=== PATIENT | female | born 1970 | race Caucasian/White ===

== ENCOUNTER 2022-08-19 09:33 | Emergency (ER) | payer OTHER ==
[~2022-08-19] VITALS: Ht 154 cm; Wt 109.0 kg
[2022-08-19 10:24] LABS: BASOPHILS # (AUTO) 0.1 10^3/uL (0.0-0.1); BASOPHILS % (AUTO) 0 % (0-10); EOSINOPHILS % (AUTO) 0 % (0-10); HEMATOCRIT 42 % (35-52); HEMOGLOBIN 13.9 g/dL (11.5-16.0); LYMPHOCYTES # (AUTO) 1.6 10^3/uL (1.0-4.0); LYMPHOCYTES % (AUTO) 7 % (12-44); MEAN CORPUSCULAR HEMOGLOBIN 30 pg (25-34); MEAN CORPUSCULAR HGB CONC 33 g/dL (32-36); MEAN CORPUSCULAR VOLUME 89 fL (80-99); MEAN PLATELET VOLUME 10.4 fL (9.0-12.2); MONOCYTES # (AUTO) 1.2 10^3/uL (0.0-1.0); MONOCYTES % (AUTO) 5 % (0-12); NEUTROPHILS # (AUTO) 19.7 10^3/uL (1.8-7.8); NEUTROPHILS % (AUTO) 87 % (42-75); PLATELET COUNT 258 10^3/uL (130-400); WHITE BLOOD COUNT 22.7 10^3/uL (4.3-11.0)
[2022-08-19 10:25] LABS: CLARITY,URINE CLOUDY; COLOR,URINE YELLOW; GLUCOSE, URINE (UA) NEGATIVE (NEGATIVE); KETONES,URINE 1+ (NEGATIVE); LEUKOCYTE ESTERASE ,URINE 3+ (NEGATIVE); NITRITE,URINE POSITIVE (NEGATIVE); PH,URINE 5.5 (5-9); PROTEIN,URINE 1+ (NEGATIVE)
[2022-08-19 10:35] LABS: BILIRUBIN,URINE 1+ (NEGATIVE)
[2022-08-19 10:36] LABS: BACTERIA,URINE MODERATE /HPF; WBC,URINE TNTC /HPF
--- NOTE | 2022-08-19 10:36 | ED GU-Female ---
General Chief Complaint: - Reproductive Stated Complaint: UTI SYMPTOMS/FLANK PAIN/FEVER/CHILLS Nursing Triage Note: PT TO RM 5 BY WC WITH C/O L FLANK PAIN THAT STARTED SATURDAY, URINARY BURNING AND DECREASED URINE OUTPUT. PT STATES SATURDAY SHE ALSO STARTED RUNNING A FEVER AFTER WORK Source: patient Exam Limitations: no limitations (SAHARA BOONE) History of Present Illness Date Seen by Provider: Aug 19, 2022 Time Seen by Provider: 10:29 Initial Comments Patient is a 51 year old F with history of diabetes and neuropathy who presents to the ER with CC of left flank pain onset 4 days ago. Reports she also began running fevers since then with the highest being 104. States that she has "violent chills" and she has not been eating well due to nausea. Denies any vomiting. Patient rates her left flank pain as 5 out of 10 at present and describes it as sharp and intermittent. She reports feeling dehydrated and that her urine is dark in color. States that she has a dry cough at times. Denies any shortness of breath or chest pain at this time. 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 She has not been swabbed for the flu. She has received 2 doses of the COVID vaccine and her flu vaccine. Timing/Duration: intermittent Severity/Quality: mild Location: left flank Radiation: none Associated Symptoms: dysuria, fever/chills, nausea/vomiting (SAHARA BOONE) Allergies and Home Medications Allergies Coded Allergies: cefaclor (Verified Allergy, Unknown, 08/19/22) levofloxacin (Verified Allergy, Unknown, 08/19/22) penicillin G (Verified Allergy, Unknown, 08/19/22) sulfamethoxazole (Verified Allergy, Unknown, 08/19/22) trimethoprim (Verified Allergy, Unknown, 08/19/22) Patient Home Medication List Home Medication List Reviewed: Yes (SAHARA BOONE) Review of Systems Review of Systems Constitutional: chills, fever EENTM: no symptoms reported Respiratory: cough (dry); No short of breath Cardiovascular: No chest pain, No palpitations Gastrointestinal: No abdominal pain; nausea; No vomiting Genitourinary: dysuria, flank pain (left more than right); denies hematuria Musculoskeletal: no symptoms reported (SAHARA BOONE) Past Wveioeu-Arzfpb-Bfifcn Hx Patient Social History Tobacco Use?: No Smoking Status: Former Smoker Substance use?: No Alcohol Use?: Yes Alcohol Frequency: Rarely (MIGUELINASTEFANISAHARA) Immunizations Up To Date Influenza Vaccine Up-to-Date: Yes; Up-to-Date First/Initial COVID19 Vaccinat: 2020 Second COVID19 Vaccination Amaury: 2020 (SAAHRA BOONE) Past Medical History Surgery/Hospitalization HX: DM, HTN, NERVE PROBLEMS (MELYSAHARA) Physical Exam Vital Signs Vital Signs - First Documented 08/19/22 09:53 Temp 36.2 Pulse 100 Resp 18 B/P (MAP) 118/71 (87) (RANDALL KOEHLER MD) Vital Signs Capillary Refill : (SAHARA BOONE) Height, Weight, BMI Height: '" Weight: lbs. oz. kg; 45.00 BMI Method: General Appearance: WD/WN, obese Neck: non-tender, supple Cardiovascular: regular rate, rhythm, no murmur Respiratory: chest non-tender, lungs clear, normal breath sounds, no respiratory distress, no accessory muscle use Gastrointestinal: non tender, soft Back: normal inspection, CVA tenderness (L) Extremities: non-tender, no calf tenderness, other (trace ankle edema) Neurologic/Psychiatric: alert, normal mood/affect Skin: normal color, warm/dry Lymphatic: no adenopathy (cervical) (MELYSAHARA) Focused Exam Lactate Level 08/19/22 10:35: Lactic Acid Level 1.38 (RANDALL KOEHLER MD) Lactic Acid Level Laboratory Tests Test 08/19/22 10:35 Lactic Acid Level 1.38 MMOL/L (0.50-2.00) (RANDALL KOEHLER MD) Progress/Results/Core Measures Suspected Sepsis SIRS Temperature: Pulse: 100 Respiratory Rate: 18 Laboratory Tests 08/19/22 10:10: White Blood Count 22.7H Blood Pressure 118 /71 Mean: 87 Laboratory Tests 08/19/22 10:10: Platelet Count 258 (MELYSAHARA) Results/Orders Lab Results Laboratory Tests Test 08/19/22 09:53 08/19/22 10:10 08/19/22 10:30 08/19/22 10:35 Range/Units Urine Color YELLOW Urine Clarity CLOUDY Urine pH 5.5 5-9 Urine Specific [place] 1.020 1.016-1.022 Urine Protein 1+ H NEGATIVE Urine Glucose (UA) NEGATIVE NEGATIVE Urine Ketones 1+ H NEGATIVE Urine Nitrite POSITIVE H NEGATIVE Urine Bilirubin 1+ H NEGATIVE Urine Urobilinogen 1.0 < = 1.0 MG/DL Urine Leukocyte Esterase 3+ H NEGATIVE Urine RBC (Auto) 2+ H NEGATIVE Urine RBC 10-25 H /HPF Urine WBC TNTC H /HPF Urine Squamous Epithelial Cells 10-25 H /HPF Urine Crystals NONE /LPF Urine Bacteria MODERATE H /HPF Urine Casts NONE /LPF Urine Mucus NEGATIVE /LPF Urine Culture Indicated CULTURE PENDING White Blood Count 22.7 H 4.3-11.0 10^3/uL Red Blood Count 4.70 3.80-5.11 10^6/uL Hemoglobin 13.9 11.5-16.0 g/dL Hematocrit 42 35-52 % Mean Corpuscular Volume 89 80-99 fL Mean Corpuscular Hemoglobin 30 25-34 pg Mean Corpuscular Hemoglobin Concent 33 32-36 g/dL Red Cell Distribution Width 14.0 10.0-14.5 % Platelet Count 258 130-400 10^3/uL Mean Platelet Volume 10.4 9.0-12.2 fL Immature Granulocyte % (Auto) 1 % Neutrophils (%) (Auto) 87 H 42-75 % Lymphocytes (%) (Auto) 7 L 12-44 % Monocytes (%) (Auto) 5 0-12 % Eosinophils (%) (Auto) 0 0-10 % Basophils (%) (Auto) 0 0-10 % Neutrophils # (Auto) 19.7 H 1.8-7.8 10^3/uL Lymphocytes # (Auto) 1.6 1.0-4.0 10^3/uL Monocytes # (Auto) 1.2 H 0.0-1.0 10^3/uL Eosinophils # (Auto) 0.0 0.0-0.3 10^3/uL Basophils # (Auto) 0.1 0.0-0.1 10^3/uL Immature Granulocyte # (Auto) 0.1 0.0-0.1 10^3/uL Neutrophils % (Manual) 85 % Lymphocytes % (Manual) 9 % Monocytes % (Manual) 2 % Eosinophils % (Manual) 0 % Basophils % (Manual) 0 % Band Neutrophils 4 % Blood Morphology Comment NORMAL Sodium Level 135 135-145 MMOL/L Potassium Level 4.0 3.6-5.0 MMOL/L Chloride Level 101 98-107 MMOL/L Carbon Dioxide Level 18 L 21-32 MMOL/L Anion Gap 16 H 5-14 MMOL/L Blood Urea Nitrogen 29 H 7-18 MG/DL Creatinine 1.42 H 0.60-1.30 MG/DL Estimat Glomerular Filtration Rate 45 BUN/Creatinine Ratio 20 Glucose Level 160 H 70-105 MG/DL Calcium Level 8.6 8.5-10.1 MG/DL Corrected Calcium 8.9 8.5-10.1 MG/DL Total Bilirubin 1.4 H 0.1-1.0 MG/DL Aspartate Amino Transf (AST/SGOT) 32 5-34 U/L Alanine Aminotransferase (ALT/SGPT) 37 0-55 U/L Alkaline Phosphatase 115 40-136 U/L Total Protein 7.4 6.4-8.2 GM/DL Albumin 3.6 3.2-4.5 GM/DL Influenza Type A (RT-PCR) Not Detected Not Detecte Influenza Type B (RT-PCR) Not Detected Not Detecte SARS-CoV-2 RNA (RT-PCR) Not Detected Not Detecte Lactic Acid Level 1.38 0.50-2.00 MMOL/L Test 08/19/22 11:10 Range/Units Prothrombin Time 17.0 H 12.2-14.7 SEC INR Comment 1.3 0.8-1.4 Activated Partial Thromboplast Time 35 24-35 SEC (RANDALL KOEHLER MD) My Orders Orders - RANDALL KOEHLER MD Cbc With Automated Diff (08/19/22 10:18) Comprehensive Metabolic Panel (08/19/22 10:18) Blood Culture (08/19/22 10:18) Sputum Culture (08/19/22 10:18) Urinalysis (08/19/22 10:18) Urine Culture (08/19/22 10:18) Protime With Inr (08/19/22 10:18) Partial Thromboplastin Time (08/19/22 10:18) Chest 1 View, Ap/Pa Only (08/19/22 10:18) Ed Iv/Invasive Line Start (08/19/22 10:18) Ed Iv/Invasive Line Start (08/19/22 10:18) Vital Signs Adult Sepsis Patie Q15M (08/19/22 10:18) O2 (08/19/22 10:18) Remove Rings In Anticipation O (08/19/22 10:18) Lactic Acid Analyzer (08/19/22 10:18) Manual Differential (08/19/22 10:10) Ns Iv 1000 Ml (Sodium Chloride 0.9%) (08/19/22 11:00) Covid 19 Inhouse Test (08/19/22 11:04) Influenza A And B By Pcr (08/19/22 11:04) Isolation Central Supply Req (08/19/22 11:04) Ct Abd/Pelvis Wo(Kidney Stone) (08/19/22 11:04) Ceftriaxone 1 Gm Pre-Mix (Rocephin 1 Gm (08/19/22 12:00) (RANDALL KOEHLER MD) Vital Signs/I&O 08/19/22 09:53 Temp 36.2 Pulse 100 Resp 18 B/P (MAP) 118/71 (87) (RANDALL KOEHLER MD) Vital Signs/I&O Capillary Refill : (SUBBARAO,SAHARA) Blood Pressure Mean: 87 Diagnostic Imaging Diagonstic Imaging: CT Comments [facility], [place] NAME: YONI HURTADO [facility] REC#: [id number] PT STATUS: REG ER : 1970 PHYSICIAN: RANDALL KOEHLER MD ADMIT DATE: 08/19/22/ER Draft Date of Exam:08/19/22 CT ABD/PELVIS WO(KIDNEY STONE) Clinical indications: Patient with complaints of left flank pain started with urinary burning and decreased urine output. Patient states , she also started running a fever after work. Exam: CT exam of the abdomen and pelvis is performed without IV or oral contrast using stone protocol. Coronal and sagittal reformatted images were created. Auto Exposure Controls were utilized during the CT exam to meet ALARA standards for radiation dose reduction. Comparisons: None. Findings: The visualized lung bases are clear. There are degenerative spurs involving the bilateral hip regions. There are degenerative spurs involving the visualized lower thoracic spine and lumbar spine. There is lower lumbar spine facet arthropathy. Gallbladder surgically absent. The liver, spleen, pancreas and adrenal glands are unremarkable. There is small amount of fluid within the bladder. There is diffuse bladder wall thickening. There is left perinephric fat stranding and no hydronephrosis or stone. There is also fat stranding along the left ureter. Right kidney shows no stone or hydronephrosis. There is a parenchymal defect or cleft involving the midportion of the right kidney. There is no intraabdominal free air or free fluid. There is no intestinal obstruction. Uterus is surgically absent. The ovaries are not visualized and may be atretic or surgically absent. Is no lymphadenopathy. There are surgical clips in the pelvis region. There is a small to moderate amount of stool throughout the colon. The appendix is unremarkable. There our postop changes to the abdomen seen with scarring. There is a small fat-containing periumbilical hernia. IMPRESSION: 1: There is fat stranding adjacent left kidney and left ureter with no hydronephrosis or stones. Pyelonephritis should be excluded. There is wall thickening involving the bladder, but a small amount of fluid within the bladder. Cystitis should be excluded. 2: The right kidney shows no evidence of acute abnormality. 3: The remainder of this exam shows no other concern for acute abnormality. Dictated on workstation # [id number] Dict: 08/19/22 1129 Trans: 08/19/22 1141 [facility] [id number] Interpreted by: ELOISE NUÑEZ MD Electronically signed by: Hua Imaging: Xray Plain Films/CT/US/NM/MRI: chest Comments [facility], [place] NAME: YONI HURTADO Espinoza [facility] REC#: [id number] PT STATUS: REG ER : 1970 PHYSICIAN: RANDALL KOEHLER MD ADMIT DATE: 08/19/22/ER Draft Date of Exam:08/19/22 CHEST 1 VIEW, AP/PA ONLY CLINICAL INDICATION: Patient with fever and flank pain. EXAM: Portable chest x-ray upright view. COMPARISON: None. FINDINGS: Lungs/pleura: Lungs are clear. There is no pneumothorax. There is no pleural effusion. Mediastinum: Unremarkable. Pulmonary vasculature: Unremarkable. Heart: Unremarkable. Bones/extrathoracic soft tissue: Unremarkable. IMPRESSION: There is no radiographic evidence of acute cardiopulmonary process. Dictated on workstation # [id number] Dict: 08/19/22 1031 Trans: 08/19/22 1037 [facility] [id number] Interpreted by: ELOISE NUÑEZ MD Electronically signed by: (RANDALL KOEHLER MD) Departure Impression Primary Impression: Acute pyelonephritis Disposition: 01 HOME, SELF-CARE Condition: Stable Departure-Patient Inst. Decision time for Depature: 11:57 (RANDALL KOEHLER MD) Referrals: MARK ROLLINS APRN (PCP/Family) Primary Care Physician Patient Instructions: Kidney Infection Add. Discharge Instructions: Drink plenty of fluids over the next 24 to 48 hours to stay adequately hydrated. Start taking the antibiotic, cefdinir 300 mg tablets twice daily tomorrow. I have also written you a prescription for Zofran, 1 every 8 hours as needed. Continue taking your Tylenol as needed for pain. You can also take [id number] Pyridium/Azo. This will help with the discomfort of bladder spasms and having to urinate more frequently. If you continue to run high fever after having antibiotics for 2 days especially if you are having increasing flank pain, vomiting please come back to the emergency room for reevaluation and possible admission. Scripts Ondansetron (Ondansetron Odt) 8 Mg Tab.rapdis 8 MG SL Q8H PRN for NAUSEA/VOMITING, #15 TAB Prov: RANDALL KOEHLER MD 08/19/22 Cefdinir (Cefdinir) 300 Mg Capsule 300 MG PO BID for 10 Days, #20 CAP Prov: RANDALL KOEHLER MD 08/19/22 Work/School Note: Work Release Form Date Seen in the Emergency Department: Aug 19, 2022 Return to Work: Aug 21, 2022 Verification and Attestation of Medical Student E/M Service A medical student performed and documented this service in my presence. I reviewed and verified all information documented by the medical student and made modifications to such information, when appropriate. I personally performed the physical exam and medical decision making. Randall Koehler, Aug 19, 2022,12:06 (RANDALL KOEHLER MD) SAHARA BOONE Aug 19, 2022 10:36 RANDALL KOEHLER MD Aug 19, 2022 12:06
[2022-08-19 10:37] LABS: ALBUMIN 3.6 GM/DL (3.2-4.5)
[2022-08-19 10:39] LABS: CALCIUM 8.6 MG/DL (8.5-10.1)
--- NOTE | 2022-08-19 10:39 | Diagnostic Imaging Report ---
CLINICAL INDICATION: Patient with fever and flank pain. EXAM: Portable chest x-ray upright view. COMPARISON: None. FINDINGS: Lungs/pleura: Lungs are clear. There is no pneumothorax. There is no pleural effusion. Mediastinum: Unremarkable. Pulmonary vasculature: Unremarkable. Heart: Unremarkable. Bones/extrathoracic soft tissue: Unremarkable. IMPRESSION: There is no radiographic evidence of acute cardiopulmonary process. Dictated by: Dictated on workstation # [id number]
[2022-08-19 10:40] LABS: TOTAL PROTEIN 7.4 GM/DL (6.4-8.2)
[2022-08-19 10:42] LABS: BILIRUBIN,TOTAL 1.4 MG/DL (0.1-1.0)
[2022-08-19 10:43] LABS: CREATININE SERUM 1.42 MG/DL (0.60-1.30)
[2022-08-19 10:56] LABS: BAND NEUTROPHILS 4 %; BASOPHILS % (MANUAL) 0 %; EOSINOPHILS % (MANUAL) 0 %; LYMPHOCYTES % (MANUAL) 9 %; MONOCYTES % (MANUAL) 2 %; NEUTROPHILS % (MANUAL) 85 %; RBC MORPH NORMAL
[2022-08-19] MEDS: NS IV 1000 ML 1,000 ML IV SCH ×2 (11:04→12:06)
[2022-08-19 11:34] LABS: INR 1.3 (0.8-1.4)
--- NOTE | 2022-08-19 11:43 | Diagnostic Imaging Report ---
Clinical indications: Patient with complaints of left flank pain started with urinary burning and decreased urine output. Patient states , she also started running a fever after work. Exam: CT exam of the abdomen and pelvis is performed without IV or oral contrast using stone protocol. Coronal and sagittal reformatted images were created. Auto Exposure Controls were utilized during the CT exam to meet ALARA standards for radiation dose reduction. Comparisons: None. Findings: The visualized lung bases are clear. There are degenerative spurs involving the bilateral hip regions. There are degenerative spurs involving the visualized lower thoracic spine and lumbar spine. There is lower lumbar spine facet arthropathy. Gallbladder surgically absent. The liver, spleen, pancreas and adrenal glands are unremarkable. There is small amount of fluid within the bladder. There is diffuse bladder wall thickening. There is left perinephric fat stranding and no hydronephrosis or stone. There is also fat stranding along the left ureter. Right kidney shows no stone or hydronephrosis. There is a parenchymal defect or cleft involving the midportion of the right kidney. There is no intraabdominal free air or free fluid. There is no intestinal obstruction. Uterus is surgically absent. The ovaries are not visualized and may be atretic or surgically absent. Is no lymphadenopathy. There are surgical clips in the pelvis region. There is a small to moderate amount of stool throughout the colon. The appendix is unremarkable. There our postop changes to the abdomen seen with scarring. There is a small fat-containing periumbilical hernia. IMPRESSION: 1: There is fat stranding adjacent left kidney and left ureter with no hydronephrosis or stones. Pyelonephritis should be excluded. There is wall thickening involving the bladder, but a small amount of fluid within the bladder. Cystitis should be excluded. 2: The right kidney shows no evidence of acute abnormality. 3: The remainder of this exam shows no other concern for acute abnormality. Dictated by: Dictated on workstation # [id number]
[2022-08-19] MEDS ORDERED: ONDA8TAB13 SL (11:58)
[2022-08-19] MEDS ORDERED: CEFD300C3 PO (11:58)
[2022-08-19] MEDS ORDERED: cefTRIAXone 1 GM PRE-MIX 50 ML IV ONE (12:00)
[2022-08-19 15:58] VITALS: BP 135/69
== END 2022-08-19 16:00 | disposition home or self-care (01) ==
LOC: EDUNIT# 09:33 → ER 09:37
DX: N10 Acute pyelonephritis (principal); Z87.891 Personal history of nicotine dependence; Z88.1 Allergy status to other antibiotic agents; Z88.0 Allergy status to penicillin; Z88.2 Allergy status to sulfonamides; Z20.822 Contact with and (suspected) exposure to COVID-19
CPT/HCPCS: 36415; 71045; 74176; 80053; 81000; 83605; 85007; 85027; 85610; 85730; 87040; 87077; 87088; 87186; 87636